=== PATIENT | female | born 1960 | race Caucasian/White ===

== ENCOUNTER 2021-11-11 03:04 | Emergency (ER) | payer OTHER ==
[~2021-11-11] VITALS: Ht 175.3 cm; Wt 72.6 kg
[2021-11-11] MEDS ORDERED: ZOLOFT25 MG PO (03:22)
[2021-11-11] MEDS ORDERED: WELLBUTRIN XL300 MG PO (03:22)
== END 2021-11-11 04:32 | disposition home or self-care (01) ==
LOC: ED 03:04
DX: J02.9 Acute pharyngitis, unspecified (principal); Z20.822 Contact with and (suspected) exposure to COVID-19; I10 Essential (primary) hypertension; Z79.899 Other long term (current) drug therapy
CPT/HCPCS: 87502; 99283; U0003